=== PATIENT | male | born 1960 | race Caucasian/White ===

== ENCOUNTER 2017-05-09 12:38 | Emergency (ER) | payer OTHER ==
[~2017-05-09] VITALS: Ht 188 cm; Wt 140.6 kg
[~2017-05-09 12:38] MED LIST: CIPRO500 MG PO; HYDROCODON-ACE1 EAC8 PO
[2017-05-09] MEDS ORDERED: TAMSULOSIN HCL0.4 MG PO (12:54)
[2017-05-09] MEDS ORDERED: SERTRALINE HCL100 MG PO (12:55)
[2017-05-09] MEDS ORDERED: LEVOTHYROXINE88 MCG PO (12:55)
[2017-05-09] MEDS ORDERED: LEVOTHYROXINE200 MCG PO (12:55)
== END 2017-05-09 14:30 | disposition home or self-care (01) ==
LOC: ED 12:38
DX: S16.1XXA Strain of muscle, fascia and tendon at neck level, initial encounter (principal); S09.90XA Unspecified injury of head, initial encounter; F32.9 Major depressive disorder, single episode, unspecified; E03.9 Hypothyroidism, unspecified; Z87.891 Personal history of nicotine dependence; Z96.643 Presence of artificial hip joint, bilateral; Z79.899 Other long term (current) drug therapy; W22.8XXA Striking against or struck by other objects, initial encounter
CPT/HCPCS: 70450; 72125; 99284